=== PATIENT | female | born 1980 | race Caucasian/White ===

== ENCOUNTER → 2024-02-08 07:34 | Outpatient (REF) | payer OTHER, SELFPAY | LOC: HWWDC 07:34 | PROVIDERS: ATTENDING PHYSICIAN Obstetrics & Gynecology; FAMILY PHYSICIAN Family Medicine | DX: Z12.31 Encounter for screening mammogram for malignant neoplasm of breast (principal) | CPT/HCPCS: 77063; 77067 ==

== ENCOUNTER 2024-04-02 09:18 | Emergency (ER) | payer OTHER, SELFPAY ==
[2024-04-02 09:19] VITALS: BP 124/82
--- NOTE | 2024-04-02 09:32 | ED.GENMED ---
History of Present Illness
General
Chief Complaint: Abdominal Pain
Source: patient
Exam Limitations: none
Time Seen by Provider: 04/02/24 09:23
Nursing documentation reviewed up to this point in time: agreed with
Travel History
Have you had any contact with someone who has COVID-19?: No
Do you have any symptoms of coronavirus? Fever > 100 degrees, chills, cough, shortness of breath, sore throat, loss of taste or smell, muscle aches, or headache?: No
History of Present Illness
History of Present Illness:
43-year-old female without significant past medical history presenting to the emergency department with very abrupt severe left lower quadrant abdominal pain lasting for about 45 minutes this morning and resolved after EMS arrived she then drove
herself in roughly an hour later. Symptoms are now minimal but still somewhat present to the left lower quadrant of the abdomen denies any vaginal symptoms but does have a little bleeding noted is the beginning of her period. She has had nausea no
vomiting denies similar symptoms in the past.
Past History
Past History
ED Past Medical History: None; Negative Asthma, HTN, Hypercholesterolemia or NIDDM
ED Past Surgical History: None
Social History
Tobacco: Non-smoker
Alcohol: None
Personal:
Living: with family
Family History
Family History: Negative Diabetes, Hypertension, Early CAD, Asthma or Cancer
Review of Systems
Review of Systems
Allergies reviewed?: Yes
All Other Systems: ROS reviewed and negative except as documented in HPI and ROS
Phy Exam
Physical Exam
Physical Exam:
GENERAL: Alert , in no apparent distress
EYE: pupils equal and reactive
NECK: Supple, no significant adenopathy.
ENT: o/p clr, mmm.
CARDIAC: Regular rate and rhythm .
LUNGS: Clear breath sounds bilaterally, no acute respiratory distress, no wheezes/rales/rhonchi
ABDOMEN: Soft, without focal tenderness, no r/g, no cvat
Pelvic: No pain in the adnexa is or to the cervix no abnormalities no bleeding
NEUROLOGICAL: Alert and oriented, no focal neuro deficits
SKIN: Warm and dry, skin intact.
MUSCULOSKELETAL: No edema, well perfused.
PSYCH: Normal and appropriate interaction.
Course
Orders/Labs/Results
Orders:
Orders
04/02/24 09:31
CT Abd/Pel (IV only)-[facility] only Urgent
Comment:
Reason For Exam: llq pain
Test Result ONCE
04/02/24 09:37
Complete Blood Count/With Diff Urgent
Comprehensive Metabolic Panel Urgent
HCG, Serum Qualitative Screen Urgent
04/02/24 09:51
Urinalysis Reflex To Culture Urgent
Date Specimen was Collected: 04/02/24
Time Specimen was Collected: 09:39
Urine Microscopic Reflex Cult Urgent
Abnormal Lab Results
04/02/24 04/02/24
09:37 09:51
WBC 4.5 L 10^3/uL
(4.8-10.8)
Absolute Lymphs (auto) 1.0 L 10^3/uL
(1.2-3.4)
Ur Occult Blood Reflex 1+ A
(Negative)
Urine Bacteria (Reflex) Few A
(Negative)
04/02/24 09:37
04/02/24 09:37
Vital Signs
Initial and Last Documented VS:
Initial Vital Signs
Temp Pulse Resp BP Pulse Ox
98.2 F 78 16 124/82 100
04/02/24 09:19 04/02/24 09:19 04/02/24 09:19 04/02/24 09:19 04/02/24 09:19
Last Documented Vital Signs
Temp Pulse Resp BP Pulse Ox
98.2 F 78 16 124/82 100
04/02/24 09:19 04/02/24 09:19 04/02/24 09:19 04/02/24 09:19 04/02/24 09:19
MDM/Problems Addressed
MDM/Problems Addressed:
43-year-old female presenting to the emergency department today with concerns of left lower quadrant abdominal pain that was very severe lasted for 45 minutes EMS was called came to the house but otherwise symptoms improved at that point then drove
herself and is there is some minimal ongoing symptoms. Here she has reproducible pain to the left lower quadrant though generally comfortable throughout exam but examination with no discernible pain no masses no bleeding. CT scan showing evidence
of potential recently passed stone which seems to fit patient's symptoms well. Otherwise does have pelvic congestion syndrome. This was discussed with the radiologist no evidence of this being an acute finding or consistent with potential torsion
she has no pain on pelvic examination making torsion unlikely. She was advised for immediate return for any worsening or progressive symptoms. She demonstrated understanding and agreement.
*Critical Care Note
Total Time (30-74mins, 75-104mins- exclusive of procedures): Not Applicable
ED Attending Note
-
Portions of this chart may have been created with voice recognition software.� Occasional wrong word or��sound alike� substitutions may have occurred due to the inherent limitations of voice recognition software.
Discharge Plan
Departure
Patient Disposition: Home (Routine Discharge)
Date of Disposition: 04/02/24
Time of Disposition: 12:54
Patient with high blood pressure during this ER visit?: No
Condition: Good
Covid-19: Not Applicable
Discharge Problem:
Left lateral abdominal pain
Instructions: Abdominal Pain
Prescriptions:
No Action
multivitamin with folic acid [Tab-A-Gregoria] 1 TABLET tablet
1 tab PO DAILY
Referrals:
Venu Machuca MD [Family Provider] -
Activity Restrictions/Additional Instructions:
You came to the emergency department today with concerns of left-sided lower abdominal pain. You may have had a passed stone please follow close with the obstetrical tech for these incidental findings. Return to the emergency department for any
worsening, new or concerning symptoms.
Interventions
Interventions:
*Risk Screen - Suicide Last Done: 04/02/24 09:27
*General Assessment Last Done: 04/02/24 09:27
*Neglect/Abuse Screening Last Done: 04/02/24 09:27
ED- Fall Risk Assessment Last Done: 04/02/24 09:27
*ED COVID-19 Vaccine History Last Done: 04/02/24 09:19
[facility]-Imupwb-Qsqzxudiso Assessment Last Done: 04/02/24 09:27
Discharge Date and Time
Print Language: PERSIAN
[2024-04-02 09:48] LABS: % Basophils 0.4 % (0-2); % Eosinophils 1.8 % (0-6); % Lymphocytes 21.9 % (20.5-51.1); % Monocytes 8.5 % (1.7-9.3); % Neutrophils 67.4 % (42.2-75.2); Absolute Eosinophils 0.1 10^3/uL (0-0.7); Absolute Monocytes 0.4 10^3/uL (0.1-0.6); Hematocrit 37.6 % (37.0-47.0); Hemoglobin 12.9 g/dL (12.0-16.0); Mean Corp Hgb Conc. 34.3 g/dL (33.0-37.0); Mean Corpuscular Hgb 30.4 pg (27.0-31.0); Mean Corpuscular Volume 88.7 fL (81.0-99.0); Mean Platelet Volume 9.9 fL (7.4-10.4); Nucleated Red Blood Cells % 0 %; Platelet Count 169 10^3/uL (130-400); Red Blood Cell Count 4.24 10^6/uL (4.20-5.40); Red Cell Dist. Width 13.1 % (11.5-14.5); White Blood Cell Count 4.5 10^3/uL (4.8-10.8)
[2024-04-02 10:08] LABS: ALT (SGPT) 29 U/L (0-35); AST (SGOT) 32 U/L (14-36); Albumin 4.5 g/dl (3.5-5.0); Alkaline Phosphatase 47 U/L (38-126); Blood Urea Nitrogen 9 mg/dl (7-17); Calcium 9.8 mg/dl (8.4-10.2); Carbon Dioxide 24 mmol/L (22-30); Chloride 107 mmol/L (98-107); Glucose 94 mg/dl (70-99); Sodium 140 mmol/L (135-145); Total Bilirubin 0.7 mg/dl (0.2-1.3); Total Protein 7.2 g/dl (6.3-8.2); eGFR > 60.00
[2024-04-02 10:09] LABS: Urine Albumin Negative (Neg - Trace); Urine Bilirubin Negative (Negative); Urine Character Clear (Clear); Urine Color Yellow; Urine Glucose Negative (Negative); Urine Ketone Negative (Negative); Urine Leukocyte Negative (Negative); Urine Nitrite Negative (Negative); Urine Occult Blood 1+ (Negative); Urine Urobilinogen Negative (Neg - 1+)
[2024-04-02 10:12] LABS: HCG, Serum Qualitative Screen Negative
[2024-04-02 10:36] LABS: Urine Urothelial Cell 0-2 /LPF (FEW)
[2024-04-02 10:37] LABS: Urine Bacteria Few (Negative); Urine Red Blood Cell 0-2 /HPF (0-2); Urine White Cell 0-2 /HPF (0-5)
== END 2024-04-02 13:08 | disposition home or self-care (01) ==
LOC: EMR 09:18
PROVIDERS: Physician Assistant; EMERGENCY PHYSICIAN Emergency Medicine; FAMILY PHYSICIAN Family Medicine
DX: R10.32 Left lower quadrant pain (principal); R11.0 Nausea; N94.89 Other specified conditions associated with female genital organs and menstrual cycle
CPT/HCPCS: 99285; 74177; 80053; 81003; 81015; 84703; 85025; Q9967

== ENCOUNTER 2024-11-24 06:38 | Day surgery (SDC) | payer OTHER, SELFPAY | END 2024-11-24 16:40 | disposition home or self-care (01) | LOC: GI 06:38 | PROVIDERS: ATTENDING PHYSICIAN Internal Medicine Gastroenterology; FAMILY PHYSICIAN Internal Medicine Cardiovascular Disease | DX: Z12.11 Encounter for screening for malignant neoplasm of colon (principal); D12.3 Benign neoplasm of transverse colon; D12.5 Benign neoplasm of sigmoid colon; K62.89 Other specified diseases of anus and rectum; K64.0 First degree hemorrhoids | CPT/HCPCS: 45385; 88305 ==

== ENCOUNTER → 2025-02-11 07:05 | Outpatient (REF) | payer OTHER, SELFPAY | LOC: WDC 07:05 | PROVIDERS: ATTENDING PHYSICIAN Obstetrics & Gynecology; FAMILY PHYSICIAN Family Medicine | DX: Z12.31 Encounter for screening mammogram for malignant neoplasm of breast (principal) | CPT/HCPCS: 77063; 77067 ==

== ENCOUNTER → 2025-08-26 07:44 | Outpatient (REF) | payer OTHER, SELFPAY | LOC: EMG 07:44 | PROVIDERS: ATTENDING PHYSICIAN Orthopaedic Surgery; FAMILY PHYSICIAN Family Medicine | DX: R20.0 Anesthesia of skin (principal) | CPT/HCPCS: 95886; 95911 ==